=== PATIENT | female | born 1960 | race Caucasian/White ===

== ENCOUNTER 2016-07-16 10:30 | Day surgery (SDC) | payer BC ==
[2016-07-16] VITALS (16 sets, daily range): BP systolic 137–185; BP diastolic 72–105; PULSE 48–73; RESP 12–21; Ht 160 cm; Wt 62.5 kg
[~2016-07-16] VITALS: Ht 160 cm; Wt 62.5 kg
[~2016-07-16 10:30] MED LIST: CEFAZOLIN 1 GM INJ ONE
[2016-07-16] MEDS ORDERED: MIDAZOLAM 1 MG/ML 2 ML INJ ONE (10:45)
[2016-07-16] MEDS ORDERED: LIDOCAINE 2% (SDV) 5 ML INJ ONE (10:45)
[2016-07-16] MEDS ORDERED: FENTAnyl 50 MCG/ML VIAL ONE (10:45)
[2016-07-16] MEDS ORDERED: PROPOFOL 20 ML ONE (10:45)
[2016-07-16] MEDS ORDERED: ONDANSETRON 4 MG INJ IV PRN (11:00)
[2016-07-16] MEDS ORDERED: HYDROmorphONE (0.2 MG/ML) 10ML SYG IV PRN ×2 (11:00)
[2016-07-16] MEDS ORDERED: METOCLOPRAMIDE 10 MG INJ IV PRN (11:00)
[2016-07-16] MEDS ORDERED: OXYCODONE/ACETAMINOPHEN (5/325) TAB PO PRN ×2 (11:00)
[2016-07-16] MEDS ORDERED: DIPHENHYDRAMINE 50 MG INJ IV PRN (11:00)
[2016-07-16] MEDS ORDERED: MEPERIDINE 25 MG INJ IV PRN (11:00)
[2016-07-16] MEDS ORDERED: FENTAnyl 50 MCG/ML VIAL IV PRN (11:00)
[2016-07-16] MEDS ORDERED: KETOROLAC 15 MG INJ IV ONE (11:00)
[2016-07-16] MEDS ORDERED: METH10TA2 PO (11:54)
[2016-07-16] MEDS ORDERED: HYDR-902 PO (11:54)
[2016-07-16] MEDS ORDERED: POLYMYXIN/BACITRACIN 1L IRRIG ONE (12:08)
[2016-07-16] MEDS ORDERED: BUPIVACAINE 0.5% (SDV) 30 ML INJ ONE (12:08)
[2016-07-16] MEDS ORDERED: LIDOCAINE 1% (MPF) 30 ML INJ ONE (12:08)
[2016-07-16] MEDS ORDERED: ONDANSETRON 4 MG INJ ONE (13:34)
[2016-07-16] MEDS ORDERED: HYDROCODONE/APAP (10/325) TAB PO PRN (14:30)
[2016-07-16] MEDS ORDERED: hydrALAzine 20 MG INJ ONE (14:36)
[2016-07-16] MEDS ORDERED: hydrALAzine 20 MG INJ IV ONE (15:00)
--- NOTE | 2016-07-21 13:46 | OPR ---
DATE OF OPERATION: 07/16/2016 PREOPERATIVE DIAGNOSIS: Painful hardware, right foot. POSTOPERATIVE DIAGNOSIS: Painful hardware, right foot. OPERATION PERFORMED: Removal of painful hardware, right foot. DESCRIPTION OF PROCEDURE: The patient was brought into the operating room, placed on the table in a secure supine position. Cardiac monitoring, IV sedation, and an ankle pneumatic tourniquet were ut ilized for this case. Preoperatively, a total of 20 mL of 0.5% Marcaine plain mixed with 2% lidocai ne plain were infiltrated into the right foot in the form of a Figueroa block. Upon achieving anesthesi a, the right foot and leg were prepped and draped in the usual sterile manner. The ankle pneumatic tourniquet was then inflated to 250 mmHg. Procedure #1 was then performed, removal of painful hardw are, right foot. A 4 cm incision was placed over the previous incision over the right first metatar socuneiform joint. The incision was deepened. Superficial bleeders were cauterized and bovied as n ecessary. The incision was then deepened to the hardware, which was identified the Synthes plate wa s removed as well as the 4 screws within the plate. The transfixation screw was not removed as it i s completely imbedded in the bone which I do not feel will be a problem. The surgical site was irr igated with sterile saline mixed with bacitracin solution. The subcutaneous tissue was closed with 4-0 Vicryl simple interrupted sutures. Subcutaneous tissue was closed with 4-0 Vicryl simple interr upted sutures. Skin edges were reapproximated with a running 4-0 nylon interlocking stitch. The dr essing consisted of Xeroform gauze, 4x4 gauze, 4-inch Kerlix roll, 2-inch Coban into a semi-compress sebas dressing. Immediate hyperemia was noted to all digits of the right foot upon deflating the ankl e tourniquet. No intraoperative complications were noted. The patient tolerated the above procedur e well and left the OR with vital signs stable and satisfactory. The patient will follow up 1 week postop. Dictated By: REGAN SORIA Conf#: [id number] DID#: [id number]
== END 2016-07-16 15:55 | disposition home or self-care (01) ==
LOC: SDS 10:30
PROVIDERS: ATTEND Podiatrist Primary Podiatric Medicine
DX: Z45.89 Encounter for adjustment and management of other implanted devices (principal); I10 Essential (primary) hypertension; E78.5 Hyperlipidemia, unspecified; Z86.73 Personal history of transient ischemic attack (TIA), and cerebral infarction without residual deficits
CPT/HCPCS: 20680; J0360; J0690; J1885; J2175; J2250; J2405; L3260; Z7512; Z7610; J3010